=== PATIENT | female | born 1945 | race Two or more races ===

== ENCOUNTER 2021-05-01 10:10 | Outpatient (REF) | payer OTHER, SELFPAY ==
[2021-05-01 11:16] LABS: Hematocrit 38.5 % (37.0-47.0); Hemoglobin 12.2 g/dl (12.0-16.0); Mean Corpuscular HGB Conc 31.7 g/dl (31.0-35.0); Mean Corpuscular Hemoglobin 28.2 pg (27.0-33.0); Mean Corpuscular Volume 88.9 fL (80.0-98.0); Platelet Count 298 X10*3/uL (160-400); Red Blood Count 4.33 X10*6/uL (4.20-5.50); Red Cell Distribution Width 14.1 % (11.0-16.0); White Blood Count 6.8 X10*3/uL (4.8-10.8)
[2021-05-01 11:17] LABS: Appearance Urine CLEAR; Color Urine YELLOW; Glucose Urine UA NEG (NEG); Leukocyte Esterase Urine 1+ (NEG); Nitrite Urine NEG (NEG); Specific Gravity - Urine 1.015 (1.005-1.025); Urine Blood NEG (NEG); Urine Ketones NEG (NEG); Urine Protein NEG (NEG-TRACE)
[2021-05-01 11:49] LABS: RBC Urine 0 /HPF (0); Squamous Epithelial Cell Urine 2+ /LPF; WBC Urine 0-2 /HPF (0-4)
[2021-05-01 11:55] LABS: Erythrocyte Sedimentation Rate 30 MM/HR (0-20)
[2021-05-01 11:57] LABS: Alanine Aminotransferase 13 U/L (0-31); Albumin Level 3.9 g/dL (3.5-5.0); Alkaline Phosphatase 83 U/L (39-117); Anion Gap 12 (12-20); Aspartate Amino Transferase 15 U/L (5-31); Bilirubin Direct 0.2 mg/dL (0.0-0.5); Bilirubin Total 0.5 mg/dL (0.0-1.0); Blood Urea Nitrogen 13 mg/dL (9-16); Calcium 9.1 mg/dL (8.4-10.2); Carbon Dioxide 27 mmol/L (22-29); Chloride 104 mmol/L (96-108); Cholesterol 261 mg/dL; Estimated Glomerular Filt Rate > 60; Glucose Random 91 mg/dL (60-115); HDL Cholesterol 56 mg/dL; LDL Cholesterol Calculated 185 mg/dl; Potassium 4.3 mmol/L (3.3-5.1); Sodium 139 mmol/L (135-145); Total Protein 7.5 g/dL (6.5-8.0); Triglycerides 101 mg/dL
[2021-05-01 11:59] LABS: Thyroid Stimulating Hormone 3.23 uIU/mL (0.32-4.0)
== END 2021-05-01 10:11 | disposition home or self-care (01) ==
LOC: HO.LAB 10:10
PROVIDERS: PCP Internal Medicine; Visit Provider Internal Medicine
DX: H91.90 Unspecified hearing loss, unspecified ear (principal); E03.9 Hypothyroidism, unspecified
CPT/HCPCS: 36415; 80048; 80061; 80076; 81001; 84443; 85027; 85652

== ENCOUNTER 2021-05-30 14:45 | Outpatient (REF) | payer OTHER, SELFPAY ==
--- NOTE | ~2021-05-30 | MM_ITS ---
EXAMINATION: MM SCREENING DIGITAL BREAST TOMOSYNTHESIS, BILATERAL CLINICAL INFORMATION: Screening. Asymptomatic. The lifetime risk of breast cancer based on the Tyrer-Cuzick Model is 1.9%. COMPARISON: Mammography: August 27, 2016 and studies dating back to May 11, 2008 TECHNIQUE: Digital breast tomosynthesis is performed in both the craniocaudal and mediolateral oblique views along with computer-aided detection (CAD). Synthesized 2D images are generated from the tomosynthesis. FINDINGS: There are scattered areas of fibroglandular density (ACR BI-RADS breast composition Category b). There are no significant masses, abnormal calcifications, or other abnormalities. MM/MM tomosynthesis screening BI IMPRESSION: There are no significant changes from prior study. ASSESSMENT: BI-RADS 1: Negative RECOMMENDATION: Routine annual mammography screening. This patient's information was entered into a reminder system with a target due date for their next mammogram.
== END 2021-05-30 14:46 | disposition home or self-care (01) ==
LOC: HO.MAMMO 14:45
PROVIDERS: PCP Internal Medicine; Visit Provider Internal Medicine
DX: Z12.31 Encounter for screening mammogram for malignant neoplasm of breast (principal)
CPT/HCPCS: 77063; 77067

== ENCOUNTER → 2021-10-09 10:06 | Outpatient (REF) | payer MEDICARE, SELFPAY ==
--- NOTE | 2021-10-09 10:10 | CA_ITS ---
Transthoracic Echocardiogram Patient (Last, First, Middle): Odilia Ramon, Gender: Female Date of : 1945 Age: 76 Procedure Date: 10/09/2021 Procedure Type: Transthoracic Echocardiogram Location: OP Height: 157.48 cm Weight: 62.6 kg BSA: 1.63 m2 Heart Rate: 80 bpm BP: 130 / 80 mmHg Boom Crane Operator: SB Referring MD: Vinicio Wang MD Symptoms: I35.0 - Nonrheumatic aortic (valve) stenosis Study Quality: Adequate ECG Rhythm: Sinus Conclusions: - The left ventricular systolic function is normal. The calculated ejection fraction is 66% by biplane method. - There is mild to moderate aortic valve stenosis. Findings Left Ventricle Normal left ventricular cavity size. The left ventricular systolic function is normal. The calculated ejection fraction is 66% by biplane method. There is no evidence of regional wall motion abnormalities. Diastolic function is normal for age. There is moderate septal asymmetric hypertrophy. LV peak GLS -14%. Slightly reduced. Right Ventricle Normal right ventricular cavity size and systolic function. Atria Both atria are normal in size. Aortic Valve The aortic valve was not well visualized. There is moderate calcification of the aortic valve. There is mild to moderate aortic valve stenosis. The mean gradient is 14 mmHg. There is no aortic valve regurgitation. Dimensionless index 0.35. Stroke volume index 45 mL/m2. Mitral Valve There is mild mitral annular calcification. There is trace mitral valve regurgitation. There is no mitral valve stenosis. Pulmonic Valve The pulmonic valve is likely normal. Tricuspid Valve There is mild tricuspid valve regurgitation. The pulmonary artery systolic pressure is normal. Great Vessels The aortic annulus, sinuses of valsalva, and asc aorta are normal in size. Venous The inferior vena cava is normal in size and collapses greater than 50% with inspiration. Pericardium/Pleural There is no evidence of pericardial effusion. Prior Study Comparison No prior study available for comparison. Measurements 2D Linear Measurements IVSd: 1.31 0.6-0.9/0.6-1.0 cm LVIDd: 3.98 3.9-5.3/4.2-5.9 cm LVIDd Index: 2.44 2.4-3.2/2.2-3.1 cm/m2 LVIDs: 2.43 2.0-3.6 cm LVPWd: 0.96 0.7-1.1 cm LA Diam: 3.20 2.7-3.8/3.0-4.0 cm LAIDs Index: 1.96 1.5-2.3 cm/m2 LV Mass: 188.71 67-162/88-224 g LV Mass Index: 115.77 43-95/49-115 g/m2 LVOT Diam: 2.00 3.0+(-)1.3 cm 2D Systolic Function EF 4C: 65.20 >55% EF 2C: 65.40 >55% EF BiP: 66.40 >55% Mitral Valve MV Pk E: 0.97 MV PK A: 1.13 MV Decel Time: 218.00 E/A: 0.90 E'Lateral: 6.85 E'Medial: 6.85 E/E' Med: 14.20 E/E' Lat: 14.20 PHT: 64.00 MVA PHT: 3.44 Decel [place]: 4.47 Aortic Valve AoV Pk Jesus: 2.50 AoV Mn Jesus: 1.80 AoV VTI: 0.60 AoV Pk Grad: 25.00 Aov Mn Grad: 14.00 TOBY Cont.VTI: 1.23 LVOT LVOT Pk Jesus: 0.89 LVOT Mn Jesus: 0.62 LVOT VTI: 0.24 LVOT Pk Grad: 3.00 LVOT Mn Grad: 2.00 LVOT Diam: 2.00 LVOT Area: 3.14 Diastolic Function MV Pk E: 0.97 MV Pk A: 1.13 E/A: 0.90 E'Medial: 6.85 E/E' Med: 14.20 E' Laterial: 6.85 E/E' Lat: 14.20 Right Ventricle TAPSE (mm): 20.30 TVS' Jesus: 14.50 Tricuspid Valve TR Pk Jesus: 2.74 TR Pk Grad: 30.00 RA Press: 3.00 RVSP: 33.00 Great Vessels Aorta Sinus of Valsalva: 2.80 2.0-3.5 cm Ao Asc: 2.80 2.1-3.4 cm Updated in Other Vendor System with Status of Final Dileep Osborne MD electronically signed on 10/11/2021 11:55:39 AM with status of Final
== END ==
LOC: HO.CARD 10:06
PROVIDERS: PCP Internal Medicine; Visit Provider Internal Medicine
DX: I35.0 Nonrheumatic aortic (valve) stenosis (principal)
CPT/HCPCS: 93306; 93356

== ENCOUNTER 2024-03-17 10:31 | Outpatient (AMB) | payer MEDICARE, SELFPAY ==
--- NOTE | 2024-03-17 10:53 | A.OFFPC_ITS ---
Vital Signs 03/17/24 10:54 Height 5 ft 2 in Weight 135 lb 4 oz BMI 24.7 BP 140/66 H Blood Pressure Location Lt brachial Position Sitting Pulse 73 Pulse Source Pulse Oximeter Temp 97.1 F Temp Source Skin Pulse Oximetry (%) 99 Oxygen Delivery Method Room Air Intake Visit Reasons: Annual Exam Intake Note: Patient is here today for a physical. Skiver Machine Operator Required: Yes Skiver Machine Operator Language: [place] Information Interpreted: non-clinical & clinical Water Filter Cleaner: Present Allergies Sulfa (Sulfonamide Antibiotics) Allergy (Verified 03/17/24 11:34) Rash penicillin Allergy (Unknown, Uncoded 03/17/24 11:34) Unknown pork Allergy (Unknown, Uncoded 03/17/24 11:34) Stomach Upset Medication List - Last Reconciled 03/17/24 by Maranda Barajas PA-C blood pressure monitor (Blood Pressure Kit) As directed clobetasol 0.05% 1 appl topical BID ibuprofen 600 mg PO Q8H PRN levothyroxine 100 mcg PO DAILY Tobacco use date assessed: 03/17/24 Fall risk assessment: No Falls in past year Last assessed Fall Risk: 03/17/24 Dental Screening Dental Screen Date: 03/17/24 Did you have a dental visit in the last 12 months?: Yes Did you have a dental problem in the last 6 months where you did not have access to dental care?: No Was dental information given to patient?: Patient has dentist HPI Annual Exam HPI Details This is a 78-year-old female with a past medical history of aortic stenosis and hypothyroidism who presents to the office for her annual physical exam. She is currently on levothyroxine taking as prescribed. She will need a refill on this today. Patient reports she has been having left hip pain, bilateral ankle pain and leg cramps worse at nighttime. She would like a DEXA scan to evaluate for possible osteoporosis. She reports she is taking [id number] cream although providing little to no symptomatic relief. She reports she is agreeable to trialing ibuprofen 600 mg as she has taken that in the past and has provided symptomatic relief. Her last mammogram was April of 2021 which was within normal limits. She is 78 therefore no additional mammograms are required although patient requesting a mammogram at this time for screening. Will order at this time. She reports she had a echocardiogram done in September of 2021 and would like the results about this. We discussed her results that she has mild to moderate aortic valve stenosis with an ejection fraction of 66%. She denies any cardiac related complaints. Patient had labs on 05/01/2021 which were all within normal limits. Patient requesting repeat labs. Patient lives with her . She is currently retired. Has family members around the area. She does not require a ENVIRONMENTAL FIELD PROFESSIONAL or VNA. She feels like she can take care of her all own ADLs. She is still driving and can drive at nighttime. She wears glasses and has to schedule ophthalmology exam. She reports she occasionally gets an itchy rash when she eats pork and has been prescribed betamethasone in the past and would like a prescription for this. She denies any additional complaints or concerns at this time. 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 1. Little interest or pleasure in doing things: not at all 2. Feeling down, depressed, or hopeless: not at all 3. Trouble falling or staying asleep, or sleeping too much: not at all 4. Feeling tired or having little energy: not at all 5. Poor appetite or overeating: not at all 6. Feeling bad about yourself - or that you are a failure or have let yourself or your family down: not at all 7. Trouble concentrating on things, such as reading the newspaper or watching television: not at all 8. Moving or speaking so slowly that other people could have noticed. Or the opposite - being so fidgety or restless that you have been moving around a lot more than usual: not at all 9. Thoughts that you would be better off or of hurting yourself in some way: not at all Total score: 0 Depression Screening Interpretation: Negative Depression Screening Done: Yes 16277 - PHQ-9 Billing: Yes Source: Developed by Drs. Juan Brumfield, Stefanie Diggs, Butch Kaufman and colleagues, with an educational manoj from [employer]. Thrive Questionnaire Date Thrive assessed: 03/17/24 I am a: Patient What is your living situation today?: I have a steady place to live Within the past 12 months, did the food you bought not last and you didn't have the money to get more?: Never true Within the past 12 months, did you worry whether your food would run out before you got money to buy more?: Never true Do you have trouble paying for medicines?: No Do you have trouble getting transportation to medical appointments?: No Do you have trouble paying your heating and electricity bill?: No Do you have trouble taking care of your child, family member or friend?: No Do you have trouble with day-to-day activities such as bathing, preparing meals, shopping, managing finances, etc.?: No Are you currently unemployed and looking for a job?: Yes Are you interested in more education?: No Please select the resources that you would like help with: None Currently or been in a relationship where the following occur: No concerns reported THRIVE Score: 0 AUDIT C Alcohol Use Questionnaire (AUDIT-C) 1. How often do you have a drink containing alcohol?: Never Total Score: 0 JACKIE-7 AMB Questionnaire JACKIE-7 Date JACKIE - 7 assessed: 03/17/24 Feeling nervous, anxious, or on edge: 0 = Not at all Not being able to stop or control worryin = Not at all Worrying too much about different things: 0 = Not at all Trouble relaxin = Not at all Being so restless that it is hard to sit still: 0 = Not at all Becoming easily annoyed or irritable: 0 = Not at all Feeling afraid as if something awful might happen: 0 = Not at all Total JACKIE-7 score (0-4 normal; 5-9 mild; 10-14 moderate; 15-21 severe): 0 Source: Developed by Drs. Juan Brumfield, Stefanie Diggs, Butch Kaufman and colleagues, with an educational manoj from [employer]. JACKIE-7 Assessment Billing JACKIE-7 Assessment Tool: JACKIE-7 Assessment 30777 Review of Systems Const All systems reviewed & are unremarkable except as noted in HPI and below Physical exam (Primary Care) Vital Signs: Last Vital Signs Temp 97.1 F 03/17/24 10:54 Pulse 73 03/17/24 10:54 BP 140/66 H 03/17/24 10:54 Pulse Ox 99 03/17/24 10:54 Oxygen Delivery Method Room Air 03/17/24 10:54 Care Plan Goal for BP management: 140/66 today. Patient denies prior history of elevated blood pressure. In the past in 2021 she did not have an elevated blood pressure. She denies cardiac related complaints. Patient will reassess her blood pressure over the next month and follow-up in a month we will recheck her blood pressure. Is still elevated patient will be started on blood pressure medication. BMI result Body Mass Index 24.7 Patient has a normal BMI. Tobacco/Smoking Status: Tobacco use Status Tobacco use date assessed 03/17/24 03/17/24 11:02 Patient Tobacco Use Status Never used Tobacco 03/17/24 11:02 e-Cigarette/Vaping Use Never Used 03/17/24 11:02 PHQ-9: PHQ-9 Score PHQ-9: Total score 0 03/17/24 11:27 Depression Screening Interpretation: Negative Thrive Assessment: Date of Thrive Assessment Date Thrive assessed 03/17/24 03/17/24 11:02 Currently or been in a relationship where the following occur: No concerns reported Const Other: Appearance: Alert. Oriented X3. No acute distress. Head: Normal external exam. Normocephalic. Atraumatic. Eyes: Conjunctiva and sclera normal. Eyelids normal. ENT: MMM. Normal voice. Neck: Normal inspection. Neck supple. FROM. No adenopathy. Thyroid Normal. No meningeal signs. No neck mass noted. CVS: Normal heart rate and rhythm. Heart sound normal. Pulses normal throughout. No murmurs/rales/gallops. Respiratory: No respiratory distress. Painless inspiration. Breath sounds normal. No wheezes/rales/rhonchi noted. Chest nontender. No crepitus is noted. No accessory muscle usage noted or decreased air movement noted. No signs of trauma. Abdomen: Soft and nontender. Nondistended. No guarding. No rigidity. Bowel sounds normal in all 4 quadrants. No distention noted. No organomegaly noted. No visible injury noted. No rebound tenderness. Back: Full range of motion noted. Skin: Skin warm and dry. Normal skin color. Normal skin turgor. No rashes/lesions/lacerations noted. Extremities: No lower extremity edema. No calf tenderness is noted. Extremities exhibit normal range of motion and nontender. Neuro: Oriented X 3. Moving all extremities. Normal steady gait. No focal neuro deficits noted. Vascular: + radial pulses b/l. Normal cap refill. No cyanosis noted. Coding Level of Care Code Est Pt Prev Care >65y(14522) Diagnoses Annual physical exam Z00.00 Aortic stenosis I35.0 Acquired hypothyroidism E03.9 Hard of hearing H91.90 Right ankle pain M25.571 Left hip pain M25.552 Elevated blood pressure reading R03.0 Additional Codes JACKIE-7 Assessment Billing - JACKIE-7 Assessment Tool: JACKIE-7 Assessment 04101 ([id number]) PHQ-9 - 93246 - PHQ-9 Billing: Yes ([id number]) Assessment & Plan Assessment & Plan (1) Annual physical exam: Code(s): Z00.00 - Encounter for general adult medical examination without abnormal findings Category: Medical Plan: Patient had a normal exam today. (2) Aortic stenosis: Code(s): I35.0 - Nonrheumatic aortic (valve) stenosis Category: Medical (3) Acquired hypothyroidism: Code(s): E03.9 - Hypothyroidism, unspecified Category: Medical (4) Hard of hearing: Code(s): H91.90 - Unspecified hearing loss, unspecified ear Category: Medical (5) Right ankle pain: Code(s): M25.571 - Pain in right ankle and joints of right foot Category: Medical (6) Left hip pain: Code(s): M25.552 - Pain in left hip Category: Medical (7) Elevated blood pressure reading: Code(s): R03.0 - Elevated blood-pressure reading, without diagnosis of hypertension Category: Medical Plan: Patient's blood pressure noted to be elevated. Denies any cardiac related complaints. Patient will reassess her blood pressure with the next month bring in her diary and we will discuss about possibly starting on anti hypertensive medication at her next visit in 1 month. Will continue to monitor. Plan 1. Fasting labs ordered at this time 2. Mammogram for screening ordered at this time per patient request 3. Refill for levothyroxine provide at this time 4. Echocardiogram results discussed with patient 5. Will provide prescription for ibuprofen 600 every 6-8 hours for multiple joint pains 6. Will order x-ray of left hip and right ankle due to pain 7. Will order DEXA scan to evaluate for possible osteoporosis 8. Patient to monitor her blood pressure with a diarrhea over the next month and return in 1 month to assess blood pressure and multiple joint pain, imaging Orders: Orders Comprehensive Gap. Panel Fast Today E03.9 - Hypothyroidism, unspecified, Z00.00 - Encounter for general adult medical examination without abnormal findings Magnesium Today E03.9 - Hypothyroidism, unspecified, Z00.00 - Encounter for general adult medical examination without abnormal findings Liver Panel Today E03.9 - Hypothyroidism, unspecified, Z00.00 - Encounter for general adult medical examination without abnormal findings Vitamin D 25-OH Total Today E03.9 - Hypothyroidism, unspecified, Z00.00 - Encounter for general adult medical examination without abnormal findings Complete Blood Count Auto Diff Today E03.9 - Hypothyroidism, unspecified, H91.90 - Unspecified hearing loss, unspecified ear, I35.0 - Nonrheumatic aortic (valve) stenosis, Z00.00 - Encounter for general adult medical examination without abnormal findings Erythrocyte Sedimentation Rate Today Z00.00 - Encounter for general adult medical examination without abnormal findings Lipid Panel Today E03.9 - Hypothyroidism, unspecified, Z00.00 - Encounter for general adult medical examination without abnormal findings Hemoglobin A1c Today E03.9 - Hypothyroidism, unspecified, Z00.00 - Encounter for general adult medical examination without abnormal findings TSH reflex Free T4 Today E03.9 - Hypothyroidism, unspecified, Z00.00 - Encounter for general adult medical examination without abnormal findings Vitamin B12 and Folate Today Z00.00 - Encounter for general adult medical examination without abnormal findings XR hip LT min 2V Today M25.552 - Pain in left hip, M25.571 - Pain in right ankle and joints of right foot XR ankle RT min 3V Today M25.571 - Pain in right ankle and joints of right foot Creatine Kinase Total Today E03.9 - Hypothyroidism, unspecified, Z00.00 - Encounter for general adult medical examination without abnormal findings MM screening mammo BI Today Z12.31 - Encounter for screening mammogram for malignant neoplasm of breast XR DEXA appendicular skeleton Today M81.0 - Age-related osteoporosis without current pathological fracture Medications: New 2 ibuprofen 600 mg PO Q8H PRN 30 tabs 1RF pain clobetasol 0.05% 1 appl topical BID 60 grams 1RF rash blood pressure monitor (Blood Pressure Kit) As directed 1 ea 0RF elevated bp Refilled levothyroxine 100 mcg PO DAILY 90 tabs 1RF Patient Instructions: 1. Fasting labs ordered at this time 2. Mammogram for screening ordered at this time per patient request 3. Refill for levothyroxine provide at this time 4. Echocardiogram results discussed with patient 5. Will provide prescription for ibuprofen 600 every 6-8 hours for multiple joint pains 6. Will order x-ray of left hip and right ankle due to pain 7. Will order DEXA scan to evaluate for possible osteoporosis 8. Patient to monitor her blood pressure with a diarrhea over the next month and return in 1 month to assess blood pressure and multiple joint pain, imaging
[2024-03-17 10:54] VITALS: BP 140/66; PULSE 73; TEMP 36.2; O2SAT 99; BMI 24.7
== END 2024-03-17 11:40 | disposition home or self-care (01) ==
PROVIDERS: PCP Internal Medicine; Visit Provider Internal Medicine
DX: Z00.00 Encounter for general adult medical examination without abnormal findings (principal); I35.0 Nonrheumatic aortic (valve) stenosis; E03.9 Hypothyroidism, unspecified; H91.90 Unspecified hearing loss, unspecified ear; M25.571 Pain in right ankle and joints of right foot; M25.552 Pain in left hip; R03.0 Elevated blood-pressure reading, without diagnosis of hypertension

== ENCOUNTER → 2024-03-17 10:31 | Outpatient (BNVA) | payer MEDICARE, SELFPAY | PROVIDERS: PCP Internal Medicine; Visit Provider Internal Medicine | DX: Z00.00 Encounter for general adult medical examination without abnormal findings (principal); I35.0 Nonrheumatic aortic (valve) stenosis; E03.9 Hypothyroidism, unspecified; M91.90 Juvenile osteochondrosis of hip and pelvis, unspecified, unspecified leg; M25.571 Pain in right ankle and joints of right foot; M25.552 Pain in left hip; R03.0 Elevated blood-pressure reading, without diagnosis of hypertension | CPT/HCPCS: 96127; 99397 ==

== ENCOUNTER 2024-04-29 13:28 | Outpatient (REF) | payer MEDICARE, SELFPAY ==
--- NOTE | ~2024-04-29 | MM_ITS ---
EXAMINATION: MM SCREENING DIGITAL BREAST TOMOSYNTHESIS, BILATERAL CLINICAL INFORMATION: Screening. Asymptomatic. COMPARISON: Mammography: Comparison is made with available priors TECHNIQUE: Digital breast mammography with tomosynthesis is performed in both the craniocaudal and mediolateral oblique views along with computer-aided detection (CAD). FINDINGS: There are scattered areas of fibroglandular density (ACR BI-RADS breast composition Category b). There are no significant masses, abnormal calcifications, or other abnormalities. MM/MM tomosynthesis screening BI IMPRESSION: No mammographic evidence of malignancy. ASSESSMENT: BI-RADS BI-RADS 1 - Negative RECOMMENDATION: Routine annual mammography screening. 1 year F/U This examination should not preclude the clinical evaluation of a suspicious palpable abnormality. This patient's information was entered into a reminder system with a target due date for their next mammogram. Electronically signed by: Susan Perez DO 05/03/2024 01:43 PM [facility]
--- NOTE | ~2024-04-29 | MM_ITS ---
EXAMINATION: DXA BONE DENSITY AXIAL HISTORY: Estrogen deficiency TECHNIQUE: Jangl SMS Dual energy absorptiometry (DEXA) of the lumbar spine, total left hip, and femoral neck was performed. COMPARISON: Comparison is made with the prior examination dated 07/09/2017. FINDINGS: The bone mineral density of the lumbar spine is 1.056 with a T-score of -1.0, and a Z-score of 0.8. This represents a BMD change of 1.9% compared to the prior exam. This is not statistically significant. The bone mineral density of the left total hip is 0.927 with a T-score of -0.6, and a Z-score of 1.4. This represents BMD change of -4.1% compared to the prior exam. This is statistically significant. The bone mineral density of the left femoral neck is 0.821 with a T-score of -1.6, and a Z-score of 0.6. This represents BMD change of -7.2% compared to the prior exam. FRACTURE RISK: The FRAX index suggests a ten year probability of major osteoporotic fracture of 8.3%, and of hip fracture 2.0%. MM/XR DEXA axial skeleton IMPRESSION: Based on bone mineral density, and according to World Health Organization (WHO) criteria, the diagnosis is consistent with osteopenia. All bone density values are in grams per centimeter squared (g/cm2). Statistically, 68% of repeat scans fall within 1 SD (+/- 0.010 g/cm2 for AP spine L1-L4) and 1 SD (+/- 0.012 g/cm2 for femur total) FRAX is a trademark of the [employer]'s [employer] Met[employer] Disease, a World Health Organization (WHO) Collaborating Center. Electronically signed by: Juan Yeh MD 05/02/2024 07:06 AM [facility] [place]
== END 2024-04-29 13:29 | disposition home or self-care (01) ==
LOC: HO.MAMMO 13:28
PROVIDERS: PCP Internal Medicine; Visit Provider Physician Assistant Medical
DX: Z12.31 Encounter for screening mammogram for malignant neoplasm of breast (principal); M81.0 Age-related osteoporosis without current pathological fracture
CPT/HCPCS: 77063; 77067; 77080

== ENCOUNTER → 2024-04-29 14:00 | Outpatient (BNV) | payer MEDICARE, SELFPAY | PROVIDERS: PCP Internal Medicine; Visit Provider Radiology Diagnostic Radiology | DX: Z12.31 Encounter for screening mammogram for malignant neoplasm of breast (principal) | CPT/HCPCS: 77063; 77067 ==

== ENCOUNTER 2024-09-15 10:27 | Outpatient (AMB) | payer MEDICARE, SELFPAY ==
--- NOTE | 2024-09-15 10:40 | MHC.PC.OV ---
Vital Signs 09/15/24 10:41 Height 5 ft 2 in Weight 134 lb 6 oz BMI 24.6 BP 140/70 H Blood Pressure Location Lt brachial Position Sitting Pulse 84 Pulse Source Pulse Oximeter Temp 97.3 F Temp Source Temporal Artery Scan Pulse Oximetry (%) 97 Oxygen Delivery Method Room Air Intake Visit Reasons: 6mth f/u Intake Note: Patient is here to follow up on Hypothyroidism and Blood pressure check. Bulk Gas Specialist Required: No Badger Distiller Operator: Not Required per policy Accompanied by: Self / Same As Patient Allergies Sulfa (Sulfonamide Antibiotics) Allergy (Verified 09/16/24 05:47) Rash penicillin Allergy (Unknown, Uncoded 09/16/24 05:47) Unknown pork Allergy (Unknown, Uncoded 09/16/24 05:47) Stomach Upset Medication List - Last Reconciled 09/16/24 by Vinicio Wang MD blood pressure monitor (Blood Pressure Kit) As directed calcium carbonate-vitamin D3 600 mg-12.5 mcg (500 unit) (Calcium with Vit D3) 1 cap PO BID 90 days clobetasol 0.05% 1 appl topical BID ibuprofen 600 mg PO Q8H PRN levothyroxine 100 mcg PO DAILY lisinopril 10 mg PO DAILY Tobacco use date assessed: 09/15/24 Fall risk assessment: No Falls in past year Last assessed Fall Risk: 09/15/24 Dental Screening Dental Screen Date: 03/17/24 [facility] Medical History Essential hypertension Osteopenia History of mammogram (~04/29/24) Hard of hearing Acquired hypothyroidism Surgical History No pertinent past surgical history Family History Other Substance use disorder Social History Housing: House Alcohol intake: never Patient Tobacco Use Status: Never used Tobacco e-Cigarette/Vaping Use: Never Used Second Hand Smoke Exposure: No service: No Current occupational status: employed 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 Cognitive needs: No Hearing needs: No Vision needs: Yes (glasses) Questionnaire Thrive Questionnaire Date Thrive assessed: 03/17/24 I am a: Patient What is your living situation today?: I have a steady place to live Within the past 12 months, did the food you bought not last and you didn't have the money to get more?: Never true Within the past 12 months, did you worry whether your food would run out before you got money to buy more?: Never true Do you have trouble paying for medicines?: No Do you have trouble getting transportation to medical appointments?: No Do you have trouble paying your heating and electricity bill?: No Do you have trouble taking care of your child, family member or friend?: No Do you have trouble with day-to-day activities such as bathing, preparing meals, shopping, managing finances, etc.?: No Are you currently unemployed and looking for a job?: Yes Are you interested in more education?: No Please select the resources that you would like help with: None Currently or been in a relationship where the following occur: No concerns reported THRIVE Score: 0 JACKIE-7 AMB Questionnaire JACKIE-7 Date JACKIE - 7 assessed: 03/17/24 Source: Developed by Drs. Juan Brumfield, Stefanie Diggs, Butch Kaufman and colleagues, with an educational manoj from [employer]. Physical exam (Primary Care) Vital Signs: Last Vital Signs Temp 97.3 F 09/15/24 10:41 Pulse 84 09/15/24 10:41 BP 140/70 H 09/15/24 10:41 Pulse Ox 97 09/15/24 10:41 Oxygen Delivery Method Room Air 09/15/24 10:41 BMI result Body Mass Index 24.6 Tobacco/Smoking Status: Tobacco use Status Tobacco use date assessed 09/15/24 09/15/24 10:41 Patient Tobacco Use Status Never used Tobacco 09/15/24 10:41 e-Cigarette/Vaping Use Never Used 09/15/24 10:41 Thrive Assessment: Date of Thrive Assessment Date Thrive assessed 03/17/24 09/15/24 10:41 Currently or been in a relationship where the following occur: No concerns reported Coding Level of Care Code Est Pt Level 4 (20889) Complex EM visit Add On G2211 Diagnoses Acquired hypothyroidism E03.9 Aortic stenosis I35.0 Essential hypertension I10 Assessment & Plan Assessment & Plan (1) Acquired hypothyroidism: Code(s): E03.9 - Hypothyroidism, unspecified Category: Medical Plan: Condition is stable. Patient was advised to get TSH drawn. (2) Aortic stenosis: Code(s): I35.0 - Nonrheumatic aortic (valve) stenosis Category: Medical Plan: Condition is stable. (3) Essential hypertension: Code(s): I10 - Essential (primary) hypertension Category: Medical Plan: History of Present Illness - The patient is an 79-year-old female presenting for hypertension management. - The patient attempted to monitor her blood pressure at home but faced difficulties using the device due to incorrect application. - She has not been able to record her blood pressure readings at home. - The patient agreed to take antihypertensive medication if prescribed, contingent upon high blood pressure readings. Social History Review of Systems Physical Exam General: Cooperative and healthy appearing Nutritional Appearance: Well nourished Orientation/consciousness: Patient oriented x3 Limitations: No limitations Head: Normal to inspection General: Appearance normal, both eyes and all related structures Neck: Normal visual inspection Chest: Normal palpation of entire chest wall Respiratory: Normal respiratory effort Neurology: Patient oriented x3 Results Plan 1. Hypertension - The patient will be prescribed antihypertensive medication to be taken once daily if her blood pressure readings are high. - She is instructed to record her blood pressure daily and document the readings. - Follow-up appointment scheduled in one month to assess blood pressure management. Discussion Notes I discussed with the patient the importance of monitoring her blood pressure regularly and the potential need for medication if her readings are consistently high. We agreed on a plan to start medication if necessary and to follow up in one month to evaluate her blood pressure control. Patient Instructions - Take your blood pressure medication once daily if your readings are high. - Record your blood pressure every day and write down the numbers. - Schedule a follow-up appointment in one month. Plan Enalapril has been increased to 10 mg once a day. Orders: Orders Complete Blood Count no Diff 09/15/24 E03.9 - Hypothyroidism, unspecified, I10 - Essential (primary) hypertension, I35.0 - Nonrheumatic aortic (valve) stenosis Basic Metabolic Panel 09/15/24 E03.9 - Hypothyroidism, unspecified, I10 - Essential (primary) hypertension, I35.0 - Nonrheumatic aortic (valve) stenosis Lipid Panel 09/15/24 E03.9 - Hypothyroidism, unspecified, I10 - Essential (primary) hypertension, I35.0 - Nonrheumatic aortic (valve) stenosis Thyroid Stimulating Hormone 09/15/24 E03.9 - Hypothyroidism, unspecified, I10 - Essential (primary) hypertension, I35.0 - Nonrheumatic aortic (valve) stenosis Liver Panel 09/15/24 E03.9 - Hypothyroidism, unspecified, I10 - Essential (primary) hypertension, I35.0 - Nonrheumatic aortic (valve) stenosis UA and rflx microscopic 09/15/24 E03.9 - Hypothyroidism, unspecified, I10 - Essential (primary) hypertension, I35.0 - Nonrheumatic aortic (valve) stenosis Medications: New lisinopril 10 mg PO DAILY 90 tabs 1RF Refilled levothyroxine 100 mcg PO DAILY 90 tabs 1RF
[2024-09-15 10:41] VITALS: BP 140/70; PULSE 84; TEMP 36.3; O2SAT 97; BMI 24.6
== END 2024-09-15 11:34 | disposition home or self-care (01) ==
LOC: HO.HMCH 10:28
PROVIDERS: PCP Internal Medicine; Visit Provider Internal Medicine
DX: E03.9 Hypothyroidism, unspecified (principal); I35.0 Nonrheumatic aortic (valve) stenosis; I10 Essential (primary) hypertension

== ENCOUNTER → 2024-09-15 10:27 | Outpatient (BNVA) | payer MEDICARE, SELFPAY | PROVIDERS: PCP Internal Medicine; Visit Provider Internal Medicine | DX: E03.9 Hypothyroidism, unspecified (principal); I35.0 Nonrheumatic aortic (valve) stenosis; I10 Essential (primary) hypertension | CPT/HCPCS: 99212 ==

== ENCOUNTER 2024-09-19 07:13 | Outpatient (REF) | payer MEDICARE, SELFPAY ==
[2024-09-19 07:29] LABS: MANUAL DIFF FLAG NO
[2024-09-19 08:05] LABS: Hematocrit 38.6 % (37.0-47.0); Hemoglobin 12.6 g/dl (12.0-16.0); Imm Gran Abs Auto 0.01 X10*3/uL (0.00-0.03); Imm Gran Pct Auto 0.2 % (0.0-0.4); Lymphocytes Absolute Auto 2.4 X10*3/uL (1.2-4.9); Mean Corpuscular HGB Conc 32.6 g/dl (31.0-35.0); Mean Corpuscular Hemoglobin 28.8 pg (27.0-33.0); Mean Corpuscular Volume 88.1 fL (80.0-98.0); NRBC Abs Auto 0.000 X10*3/uL (0.0-0.012); NRBC Pct Auto 0.0 /100WBC (0.0-0.2); Platelet Count 281 X10*3/uL (160-400); Red Blood Count 4.38 X10*6/uL (4.20-5.50); White Blood Count 6.6 X10*3/uL (4.8-10.8)
[2024-09-19 08:06] LABS: Hematocrit 39.1 % (37.0-47.0); Hemoglobin 12.7 g/dl (12.0-16.0); Mean Corpuscular HGB Conc 32.5 g/dl (31.0-35.0); Mean Corpuscular Hemoglobin 28.7 pg (27.0-33.0); Mean Corpuscular Volume 88.5 fL (80.0-98.0); NRBC Abs Auto 0.000 X10*3/uL (0.0-0.012); NRBC Pct Auto 0.0 /100WBC (0.0-0.2); Platelet Count 280 X10*3/uL (160-400); Red Blood Count 4.42 X10*6/uL (4.20-5.50); White Blood Count 6.5 X10*3/uL (4.8-10.8)
[2024-09-19 08:18] LABS: Hemoglobin A1C 132.7520 umol/L; Total Hemoglobin (HGBA1C) 3278.6331 umol/L
[2024-09-19 08:25] LABS: Appearance Urine Clear; Glucose Urine UA Negative (Negative); PH 5.5 (5.0-9.0); Specific Gravity - Urine 1.025 (1.005-1.025); UMIC TRIGGER UA YES
[2024-09-19 08:37] LABS: Alanine Aminotransferase 16 U/L (0-31); Albumin Level 4.2 g/dL (3.5-5.0); Alkaline Phosphatase 73 U/L (39-117); Aspartate Amino Transferase 20 U/L (5-31); Cholesterol 270 mg/dL (<200); HDL Cholesterol 53 mg/dL (>40); Total Protein 8.0 g/dL (6.5-8.0); Triglycerides 94 mg/dL (<150)
[2024-09-19 08:42] LABS: Alanine Aminotransferase 19 U/L (0-31); Albumin Level 4.2 g/dL (3.5-5.0); Alkaline Phosphatase 75 U/L (39-117); Anion Gap 9 (12-20); Aspartate Amino Transferase 20 U/L (5-31); Blood Urea Nitrogen 26 mg/dL (9-16); Calcium 8.9 mg/dL (8.4-10.2); Carbon Dioxide 26 mmol/L (22-29); Chloride 109 mmol/L (96-108); Cholesterol 271 mg/dL (<200); Estimated Glomerular Filt Rate > 60; HDL Cholesterol 54 mg/dL (>40); Magnesium 2.3 mg/dL (1.6-2.6); Potassium 4.1 mmol/L (3.3-5.1); Sodium 140 mmol/L (135-145); Total Protein 8.1 g/dL (6.5-8.0); Triglycerides 94 mg/dL (<150)
[2024-09-19 09:00] LABS: Thyroid Stimulating Hormone 4.47 uIU/mL (0.32-4.0)
[2024-09-19 09:10] LABS: Folate 5.3 ng/mL (> or = 4.0); Vitamin B12 219 pg/mL (200-900)
[2024-09-19 09:35] LABS: Free T4 (Free Thyroxine) 1.07 ng/dL (0.71-1.85)
== END 2024-09-19 07:14 | disposition home or self-care (01) ==
LOC: HO.LAB 07:13
PROVIDERS: Physician Assistant Medical; PCP Internal Medicine; Visit Provider Internal Medicine
DX: Z00.00 Encounter for general adult medical examination without abnormal findings (principal); E03.9 Hypothyroidism, unspecified; I35.0 Nonrheumatic aortic (valve) stenosis; H91.90 Unspecified hearing loss, unspecified ear; I10 Essential (primary) hypertension
CPT/HCPCS: 36415; 80053; 80061; 80076; 81001; 82248; 82306; 82550; 82607; 82746; 83036; 83735; 84439; 84443; 85025; 85027; 85652